=== PATIENT | female | born 1985 | race Asian ===

== ENCOUNTER → 2017-12-08 | Outpatient (CLI) | payer OTHER ==
[2017-12-08 13:16] LABS: BASO % 0.2 %; BASO ABS # 0.01 K/uL (0-0.2); EOS % 0.2 %; EOS ABS # 0.01 K/uL (0-0.5); HEMATOCRIT 36.7 % (37-47); HEMOGLOBIN 12.4 g/dL (12.0-16.0); IG# 0.02 K/uL (0.00-0.02); LYMPH % 19.9 %; LYMPH ABS # 1.26 K/uL (1.2-3.4); MEAN CELL VOLUME 92.4 fL (80-100); MEAN CORPUSCULAR HEMOGLOBIN 31.2 pg (25-34); MEAN CORPUSCULAR HGB CONC 33.8 g/dl (32-36); MEAN PLATELET VOLUME 10.9 fL (7.4-10.4); MONO % 5.8 %; MONO ABS # 0.37 K/uL (0.11-0.59); NEUT % 73.6 %; NEUT ABS # 4.66 K/uL (1.4-6.5); PLATELET COUNT 202 K/uL (130-400); RED CELL DISTRIBUTION WIDTH CV 12.7 % (11.5-14.5); RED CELL DISTRIBUTION WIDTH SD 42.7 fL (36.4-46.3); WHITE BLOOD COUNT 6.33 K/uL (4.8-10.8)
== END | disposition home or self-care (01) ==
LOC: C.LAB1850 12:19
PROVIDERS: ATTEND Obstetrics & Gynecology
DX: Z34.02 Encounter for supervision of normal first pregnancy, second trimester (principal)

== ENCOUNTER → 2017-12-10 | Outpatient (CLI) | payer OTHER | END | disposition home or self-care (01) | LOC: C.LABSPEC 17:05 | PROVIDERS: ATTEND Obstetrics & Gynecology | DX: Z34.02 Encounter for supervision of normal first pregnancy, second trimester (principal) ==

== ENCOUNTER → 2017-12-24 | Outpatient (CLI) | payer OTHER | END | disposition home or self-care (01) | LOC: C.LABSPEC 17:39 | PROVIDERS: ATTEND Obstetrics & Gynecology | DX: N39.0 Urinary tract infection, site not specified (principal); Z34.03 Encounter for supervision of normal first pregnancy, third trimester ==

== ENCOUNTER → 2018-01-05 | Outpatient (CLI) | payer OTHER ==
[2018-01-05 12:19] LABS: HEMATOCRIT 35.6 % (37-47); HEMOGLOBIN 12.5 g/dL (12.0-16.0)
== END | disposition home or self-care (01) ==
LOC: C.LAB1850 10:52
PROVIDERS: ATTEND Obstetrics & Gynecology
DX: Z34.03 Encounter for supervision of normal first pregnancy, third trimester (principal)

== ENCOUNTER → 2018-02-15 | Outpatient (CLI) | payer OTHER | END | disposition home or self-care (01) | LOC: C.LABSPEC 16:04 | PROVIDERS: ATTEND Obstetrics & Gynecology | DX: Z34.03 Encounter for supervision of normal first pregnancy, third trimester (principal) ==

== ENCOUNTER 2018-03-07 05:52 | Inpatient (IN) | payer OTHER ==
[~2018-03-07] VITALS: Ht 165.1 cm; Wt 79.1 kg
[2018-03-07] VITALS (15 sets, daily range): BP systolic 93–105; BP diastolic 60–65; PULSE 72–98; TEMP 36.6–36.9; O2SAT 96–100; Ht 165.1 cm; Wt 79.1 kg
[2018-03-07] MEDS ORDERED: PRENTAB26 PO (05:55)
[2018-03-07] MEDS ORDERED: CITRIC ACID/SODIUM CITRATE 15 ML UDC PO SCH (06:00)
[2018-03-07] MEDS ORDERED: LACTATED RINGER'S 1000ML 1,000 ML IV SCH ×2 (06:15→16:54)
[2018-03-07 06:26] LABS: BASO % 0.1 %; BASO ABS # 0.01 K/uL (0-0.2); EOS % 0.4 %; EOS ABS # 0.03 K/uL (0-0.5); HEMATOCRIT 39.9 % (37-47); IG# 0.01 K/uL (0.00-0.02); LYMPH % 33.7 %; MEAN CELL VOLUME 89.3 fL (80-100); MEAN CORPUSCULAR HEMOGLOBIN 31.3 pg (25-34); MEAN PLATELET VOLUME 11.4 fL (7.4-10.4); MONO % 5.9 %; MONO ABS # 0.42 K/uL (0.11-0.59); NEUT % 59.8 %; NEUT ABS # 4.26 K/uL (1.4-6.5); PLATELET COUNT 216 K/uL (130-400); RED CELL DISTRIBUTION WIDTH CV 13.6 % (11.5-14.5); RED CELL DISTRIBUTION WIDTH SD 44.5 fL (36.4-46.3); WHITE BLOOD COUNT 7.13 K/uL (4.8-10.8)
[2018-03-07 06:38] LABS: MEAN CORPUSCULAR HGB CONC 35.1 g/dl (32-36)
[2018-03-07] MEDS ORDERED: MoRPHine SULFATE PF 1 MG/ML 10 ML AMP/VIAL ONE (06:46)
[2018-03-07] MEDS ORDERED: OXYTOCIN INJ 10 UNITS/ML VIAL ONE (06:46)
[2018-03-07] MEDS ORDERED: FENTANYL CITRATE INJ 50 MCG/1 ML 2 ML VIAL ONE (06:46)
[2018-03-07] MEDS ORDERED: CEFAZOLIN IV 2,000 MG in SYRINGE 0 ML IV SCH (07:00)
--- NOTE | 2018-03-07 07:01 | History and Physical ---
History & Physical Date Mar 07, 2018. Chief Complaint term, breech presentation History of Present Illness The patient is a 33 year old female who presents at 39 weeks with breech presentation for primary c/s. has been uncomplicated. Was discovered to be breech at her 38 week visit. Declined ECV as was not available. Patient was a DAN[facility]A at 26 weeks from [place]. Past Medical/Surgical History healthy psxhx--none Additional History Hepatic Disease: No Endocrine Disorder: No Kidney Disease: No Hypertension: No Heart Disease: No Bleeding Tendencies: No Infectious Diseases: No LMP: 06/07/17 Allergies Coded Allergies: No Known Allergies (Unverified , 03/07/18) Home Medications Scheduled Multivit/Min/Iron/Fol Ac/Pren ( Vitamin), 1 TAB PO DAILY Physical Examination Skin: warm/dry Neck: supple Respiratory/Chest: lungs clear, normal breath sounds Cardiovascular: regular rate, rhythm Abdomen / GI: normal bowel sounds, non tender Extremities: normal inspection Addiitonal Comments: b+/ab-/ri/rprnr/hepb-/hiv-/gc/ct-/16 week gtt nl. gbs neg Diagnosis at 39 weeks with breech presentation. Here for primary c/s. The r/b/se of the procedure were discussed with the patient including bleeding requiring a transfusion, infection, poor wound healing, injury to structures such as bowel , bladder, vessels, nerves ureters requiring further surgery hospitalization or intervention, injury to the baby. Other risks of any surgery reviewed including heart attack, blood clot, stroke or . Consent reviewed and signed. Questions asked and answered.
[2018-03-07] MEDS ORDERED: PHENYLEPHRINE 100MCG/ML 5ML SYR ONE (07:56)
--- NOTE | 2018-03-07 08:27 | [facility] Post Operative Brief Note ---
Immediate Operative Summary Operative Date Mar 07, 2018. Pre-Operative Diagnosis 1. Term at 39 weeks 2. Breech Presentation Post-Operative Diagnosis same Procedure(s) Performed Primary transverse lower uterine caesarean section with the of a live male child at [address]. Surgeon Dr[address] [facility] Surgeon(s) Dr. Cain Estimated Blood Loss 600 ml Findings viable male, breech presentation. Normal appearing uterus, fallopian tubes and ovaries. Specimens A: Placenta B: Cord Blood C: Cord Gases Drains silva Anesthesia spinal Complication(s) None Disposition L&D
--- NOTE | 2018-03-07 08:29 | [facility] Post Operative Brief Note ---
Immediate Operative Summary Operative Date Mar 07, 2018. Pre-Operative Diagnosis 1. Term at 39 weeks 2. Breech Presentation Post-Operative Diagnosis same Procedure(s) Performed Primary transverse lower uterine caesarean section with the of a live male child at [address]. Surgeon Dr[address] Hawley [employer] Worker Surgeon(s) Dr. Cain Estimated Blood Loss 600 ml Findings Consistent with Post-Op Diagnosis Fluids (cc crystalloids) 1500cc Specimens A: Placenta B: Cord Blood C: Cord Gases Drains silva Anesthesia Type Spinal Complication(s) none Disposition Accompanied Pt To Recover: no Disposition: L&D
[2018-03-07] MEDS ORDERED: HYDROCORTISONE ACETATE 25 MG SUPP PR PRN (08:30)
[2018-03-07] MEDS ORDERED: BENZOCAINE 20% AER SPR 82.5 GM CAN EXT PRN (08:30)
[2018-03-07] MEDS ORDERED: LANOLIN OINT EXT PRN (08:30)
[2018-03-07] MEDS ORDERED: SUPERCREAM 0.870 % 15GM JAR EXT PRN (08:30)
[2018-03-07] MEDS ORDERED: OXYTOCIN INJ 20 UNITS in LACTATED RINGER'S 1000ML 1,000 ML IV SCH (08:45)
[2018-03-07] MEDS: SIMETHICONE 80 MG CHEW PO SCH ×4 (09:00→20:07)
[2018-03-07] MEDS ORDERED: NALOXONE HCL INJ 0.08 MG in SYRINGE 1.8 ML IV PRN (09:16)
[2018-03-07] MEDS ORDERED: SODIUM CHLORIDE 0.9% 1000ML 1,000 ML IV PRN (09:16)
[2018-03-07] MEDS ORDERED: LACTATED RINGER'S 1000ML 500 ML IV PRN (09:16)
[2018-03-07] MEDS ORDERED: NALOXONE HCL INJ 1 MG in SODIUM CHLORIDE 0.9% 1000ML 1,000 ML IV PRN (09:16)
[2018-03-07] MEDS ORDERED: EpHEDrine SULFATE INJ 50 MG/ML AMP IV PRN (09:30)
[2018-03-07] MEDS ORDERED: DiphenhydrAMINE HCL 50 MG/ML VIAL IV PRN (09:30)
[2018-03-07] MEDS ORDERED: MoRPHine SULFATE PF 1 MG/ML 10 ML AMP/VIAL INT SPINAL PRN (09:30)
[2018-03-07] MEDS ORDERED: NO NARCOTICS OR SEDATIVES SCH (09:30)
[2018-03-07] MEDS ORDERED: KETOROLAC TROMETHAMINE 30 MG/ML VIAL IV. PRN (09:30)
[2018-03-07] MEDS ORDERED: NALBUPHINE HCL INJ 10 MG/ML AMP IV PRN (09:30)
[2018-03-07] MEDS ORDERED: MoRPHine SULFATE 2 MG/ML CARP IV PRN (09:30)
[2018-03-07] MEDS ORDERED: ONDANSETRON INJ 2 MG/ML 2 ML VIAL IV PRN (09:30)
[2018-03-07] MEDS ORDERED: NALOXONE HCL 0.4 MG/1 ML VIAL/CARP IV PRN (09:30)
--- NOTE | 2018-03-07 09:30 | OPERATIVE REPORT ---
DATE OF OPERATION: 03/07/2018 PREOPERATIVE DIAGNOSES: 1. Intrauterine at 39 weeks. 2. Double footling breech presentation. POSTOPERATIVE DIAGNOSIS: Same. PROCEDURE: Primary low transverse section. SURGEON: Hilda Hawley MD ATOMIC WELDER: Quinn Cain, PGY-1. INDICATIONS: Patient is a 33-year-old female 1, para 0, transferring of care from [place] at 26 weeks who was discovered to be double footling breech presentation at 38 weeks. She was unable to do an ECV because of her 's schedule so she has elected a primary section. FINDINGS: Viable male infant in double footling breech presentation, Apgars 9 and 9. Clear fluid, normal uterus, tubes, and ovaries were noted bilaterally. COMPLICATIONS: None. DRAINS: Kwon. DISPOSITION: To recovery room in stable condition. PROCEDURE: The patient was taken the operating room, where she identified verbally and by bracelet. She was seated on the operating table where a spinal anesthetic was placed. She was then placed in dorsal supine position with a leftward tilt. A Kwon catheter was placed sterilely and the patient was prepped and draped in normal sterile fashion. Time-out was held identifying correct patient, procedure, positioning, and preoperative antibiotic. A Pfannenstiel skin incision was made with a knife and taken down to the underlying layer of fascia with the knife and Bovie electrocautery. Bleeding was attended to with Bovie electrocautery. The fascia was incised in midline and taken out laterally with scissors. The superior edge of the fascial incision was elevated and the underlying layer of rectus muscle was taken off bluntly and with scissors. In a similar fashion, the inferior edge of the fascial incision was grasped and elevated and the underlying layer of rectus muscle was taken off bluntly and with scissors. The muscles were bluntly and sharply in the midline. The peritoneum was entered bluntly and taken superiorly and inferiorly with good visualization of the bladder sharply with scissors. The incision was stretched, the bladder blade was placed. The vesicouterine peritoneum was identified, grasped with a snap, entered with scissors and the bladder flap was created digitally. The bladder blade was replaced. The hysterotomy incision was scored with a knife. It was entered with a snap. Copious amounts of clear fluid was released. The incision was stretched with the depalletizer operator's fingers. The depalletizer operator's hand was placed into the uterus and the feet were grasped and delivered atraumatically through the incision with fundal pressure, the buttocks were delivered easily and then the left shoulder was swept and delivered the right shoulder was swept and delivered and the head was delivered via fundal pressure Pgmtxwkgz-Myutmff-Kwrg maneuver. There was immediate cry. Nose and mouth were bulb suctioned. Cord was clamped and cut and infant was taken away to the pediatricians for drying and attention. Cord blood and gases were obtained. Placenta was manually extracted. The uterus was cleared of all clot and debris with moistened laparotomy sponges. The uterus was exteriorized. The hysterotomy incision was reapproximated with 2 running layers of 0 Vicryl. Oozing was attended to with 2 iqbgkb-mg-oyzem sutures of 0 Vicryl. The posterior cul-de-sac was irrigated and cleared of all clot and debris. The hysterotomy incision was again inspected and 1 more sbitrh-zw-qvdvf suture was needed for hemostasis. Hemostasis was then noted to be excellent. The uterus was reanteriorized and again hysterotomy incision was inspected and found to be hemostatic. The muscles were approximated in the midline with interrupted sutures of 0 Vicryl. The fascia was reapproximated starting at the edges and meeting in the midline bilaterally. Subcuticular tissue was irrigated and bleeding was attended to with Bovie electrocautery and the skin was then closed with a subcuticular stitch of 4-0 Vicryl. All sponge, lap and needle counts were correct x2. The patient tolerated the procedure well and was taken to recovery room in stable condition. I attest to the content of the Intraoperative Record and any orders documented therein. Any exception s are noted below.
--- NOTE | 2018-03-07 15:34 | Anesthesiology Progress Note ---
Anesthesia Post Op Note Date & Time Mar 07, 2018 at 15:34 Vital Signs Pain Intensity: 4.0 Vital Signs Past 12 Hours Date Time Temp Pulse Resp B/P (MAP) Pulse Ox O2 Delivery O2 Flow Rate FiO2 03/07/18 14:55 16 97 03/07/18 13:55 16 97 03/07/18 12:55 94 16 100/65 (77) 96 Room Air 03/07/18 12:55 16 96 03/07/18 11:55 98 16 96/61 (73) 98 Room Air 03/07/18 11:55 16 98 03/07/18 10:55 18 100 03/07/18 10:55 36.6 72 18 105/64 (78) 100 Room Air 03/07/18 10:55 100 Room Air 03/07/18 10:55 100 Room Air Notes Mental Status: alert / awake / arousable, participated in evaluation Pt Amnestic to Procedure: Yes Nausea / Vomiting: adequately controlled Pain: adequately controlled Airway Patency, RR, SpO2: stable & adequate BP & HR: stable & adequate Hydration State: stable & adequate Neuraxial Anesthesia: was administered, sensory block is resolving Anesthetic Complications: no major complications apparent
[2018-03-07] MEDS: DOCUSATE SODIUM 100 MG CAP PO SCH (20:07)
[2018-03-08] VITALS (7 sets, daily range): BP systolic 91–111; BP diastolic 57–73; PULSE 79–87; TEMP 36.6–36.7; O2SAT 96–99
[2018-03-08] MEDS ORDERED: DC INTRASPINAL MORPHINE SCH (01:45)
[2018-03-08] MEDS ORDERED: KETOROLAC TROMETHAMINE 30 MG/ML VIAL IV. PRN (01:46)
[2018-03-08] MEDS ORDERED: DiphenhydrAMINE HCL 50 MG/ML VIAL IV PRN (01:46)
[2018-03-08] MEDS ORDERED: OXYCODONE/ACETAMINOPHEN 5-325 TAB PO PRN (01:46)
--- NOTE | 2018-03-08 06:49 | Progress Note ---
Subjective Mar 08, 2018. Subjective conversation w/ patient, physical exam, chart review, lab review Ambulation: ambulating normally, limited ambulation Voiding: no voiding problems Passing Gas: Yes Diet Tolerance: Clear Liquids Lochia: Moderate Feeding Type: Breast Feeding Review of Systems Constitutional: No fever, No chills Respiratory: No cough, No shortness of breath Cardiac: No chest pain, No palpitations Abdomen: No pain, No nausea, No vomiting Female : No dysuria Objective Vital Signs Date Time Temp Pulse Resp B/P (MAP) Pulse Ox O2 Delivery O2 Flow Rate FiO2 03/08/18 04:00 36.7 80 16 100/60 (73) Room Air 03/08/18 02:00 16 99 03/08/18 01:00 18 99 03/08/18 00:15 98 Room Air 03/08/18 00:15 18 96 03/08/18 00:15 36.6 85 18 91/57 (68) 96 Room Air 03/07/18 22:55 16 98 03/07/18 21:55 16 97 03/07/18 20:55 18 99 03/07/18 19:55 18 98 03/07/18 19:15 36.7 72 18 93/60 (71) 98 Room Air 03/07/18 18:55 18 98 03/07/18 17:55 18 99 03/07/18 16:55 16 98 03/07/18 15:55 16 99 03/07/18 15:30 36.9 72 18 101/63 (76) 99 Room Air 03/07/18 15:30 97 Room Air 03/07/18 14:55 16 97 03/07/18 13:55 16 97 03/07/18 12:55 94 16 100/65 (77) 96 Room Air 03/07/18 12:55 16 96 03/07/18 11:55 98 16 96/61 (73) 98 Room Air 03/07/18 11:55 16 98 03/07/18 10:55 18 100 03/07/18 10:55 36.6 72 18 105/64 (78) 100 Room Air 03/07/18 10:55 100 Room Air 03/07/18 10:55 100 Room Air Physical Exam General Appearance: WELL-APPEARING, WD/WN, NO APPARENT DISTRESS Respiratory/Chest: lungs clear, no respiratory distress Cardiovascular: regular rate, rhythm, no murmur Abdomen: non tender, soft Fundus: Firm, Relation to Umbilicus (1 cm below ) Incision Description: Clean, Dry & Intact Extremities: non-tender, normal inspection Laboratory Results Last 24 Hours Test 03/08/18 06:00 Assessment and Plan Post-Op Day#: 1 Continue Routine Care: Resident Physician Supervision Note: I interviewed and examined the patient. Discussed with Dr. Quinn Cain and agree with findings and plan as documented in the note. Any exceptions or clarifications are listed here: [None] Documented By: Kirstin Trinh Nevaeh 33 F, , B+/RI/GBS-, post op day 1. Kwon removed after adequate output. Patient complains of bilateral shoulder pain. Vital reviewed, WNL. Hgb 14.0 on admission, pending this am. No signs or sx of anemia. Doing well clinically. Plan; 1. Recovery from Csection; advance diet, monitor i/o, ambulate, support BF, monitor lochia, control pain
--- NOTE | 2018-03-08 07:01 | Discharge Instructions ---
Discharge Instructions Date of Service Mar 08, 2018. Admission Reason for Admission: Breech Presentation Discharge Discharge Diagnosis / Problem: csection Discharge Goals Goal(s): Routine recovery after Medications Continue Dispensed Medications: supercream, dermaplast, tucks, lansinoh Activity Recommendations Activity Limitations: per Instructions/Follow-up section . Instructions / Follow-Up Instructions / Follow-Up ACTIVITY RECOMMENDATIONS: * Gradual return to full activity over the next 2-3 weeks. * No lifting - nothing heavier than baby over the next 2-3 weeks. * Do not engage in vigorous exercise, sexual activity or sports until cleared by your physician. * Do not drive or operate any motorized equipment until cleared by your physician. * You may shower/bathe daily. MEDICATIONS: For discomfort or pain, you may use Acetaminophen (Tylenol), Ibuprofen (Advil), or Naproxen (Aleve) following the package directions. For constipation you may use Colace following the package directions. BREAST CARE: If you are not breast feeding: * Wear a supportive bra 24 hours a day for one to two weeks. * Avoid stimulating your breasts and nipples as much as possible during the first few weeks after delivery. * When taking a shower, have the warm water hit your back, not breasts. * When your breasts feel full, apply ice packs. Usually three to four times a day helps ease the discomfort. * Take a mild pain medication (Tylenol / Motrin) when you are uncomfortable. If breast feeding: * Use breast milk to lubricate nipples. Lansinoh cream may be used for sore nipples. You do not need to remove cream prior to breast feeding. If using a different brand of cream, check the label for directions regarding removal of cream prior to nursing. * Wear a supportive bra. * If having problems with breasts or breast feeding, call a customer care voice consultant or your health care provider. SPECIAL CARE INSTRUCTIONS: When you are discharged from the hospital, it is important for you to follow the instructions listed below: * During the first week at home, you should be able to care for yourself and your baby. In addition, the usual light household activities are encouraged. * Limit your activities to the way you feel. Do not try to clean the house or move furniture. Be sensible. * If you actively engage in sports and have done so up until the time of your delivery, you may resume these activities as soon as you feel able. This may take up to one month or even longer. Use good judgment. * Continue to take your vitamins for at least six weeks after the of your baby. * Your diet need not be limited unless you were on a special diet before your delivery. Breast-feeding mothers need around 2500 calories per day and at least 64-80 ounces of fluid per day (8 to 10 glasses). * You should eat foods from the four major food groups. Crash diets or fad diets are to be avoided. Eating lean meats, fresh fruits and vegetables, low-fat dairy products, high fiber foods and a regular exercise program, will help you get back to your pre- weight without putting your health at risk. * Constipation is sometimes a problem after delivery. Take a mild laxative as needed. If breast feeding, Milk of Magnesia is acceptable to use. You may use a suppository or Fleets enema. * A daily shower or tub bath is suggested. Wash incision daily with warm soapy water and pat dry. It doesn't need to be covered unless drainage is present. * A bloody vaginal discharge will usually continue until around four weeks . A small amount of bleeding may continue for as long as six weeks. Vaginal discharge changes from the bright red bleeding after delivery to pink then brownish and finally yellowish-pink before becoming white and disappearing. * Bleeding may increase with activity. Your first period may come in 4-8 weeks. If you are breast feeding, your period may be delayed even longer. * [place] (sex) can begin whenever both you and your partner feel comfortable and do not have any form of genital infection. It is recommended that you wait at least six weeks for internal and external healing to occur. If you have questions, please talk to your health care practitioner. A condom should be used to prevent infection and . * Foreplay, gentle intercourse and lubrication is very important the first several times to prevent pain. A water-based lubricant such as K-Y jelly or Astroglide may be used. * If you have RH negative blood and your baby is RH positive, you will receive RHOGAM by injection prior to discharge. The nurse will give you a card to keep with you that has the date and place that you received RHOGAM after delivery. * During your care, you had a Rubella screen done to check for the presence of rubella antibodies in your blood. If your test was negative, you will receive a Rubella vaccine prior to discharge. This vaccine may cause a fever, soreness at the injection site and flu-like symptoms. If these symptoms persist, notify your health care practitioner. is not advised for one month after a Rubella vaccine. * Verbalizes understanding of car seat law as reviewed with patient nursing. * Car Seat hand-out given and reviewed with patient by nursing. * Shaken baby information reviewed with patient by nursing. Call you doctor if: * Heavy bleeding (saturating several pads an hour) or passing clots the size of your fist. * A fever >101 degrees F (38.3 degrees C) on two occasions four hours apart and /or chills. * Unusual pain in the pelvic or vaginal areas. * Call the doctor for any increased redness, drainage or swelling around the incision and any pain unrelieved by prescribed pain medication. * "Baby Blues" lasting longer than two weeks. If you have any questions or concerns, call your health care practitioner at . FOLLOW UP VISIT: * Please call the office at to schedule a 6 week examination. It is important you keep this appointment. It is important for you to make arrangements for either yearly or twice yearly check-ups thereafter. Current Hospital Diet Patient's current hospital diet: Regular OB Diet Discharge Diet Recommended Diet: Regular Diet, Regular OB Diet Procedures Procedures Performed: Primary transverse lower uterine caesarean section with the of a live male child at 0758. Pending Studies Studies pending at discharge: no Medical Emergencies . Who to Call and When: Medical Emergencies: If at any time you feel your situation is an emergency, please call [phone] immediately. . Non-Emergent Contact Non-Emergency issues call your: Primary Care Provider, Physiological Chemist . . "Provider Documentation" section prepared by Asif Cain. .
[2018-03-08 07:02] LABS: EOS % 0.1 %; EOS ABS # 0.01 K/uL (0-0.5); HEMATOCRIT 35.2 % (37-47); HEMOGLOBIN 12.1 g/dL (12.0-16.0); IG# 0.02 K/uL (0.00-0.02); LYMPH % 23.5 %; LYMPH ABS # 2.08 K/uL (1.2-3.4); MEAN CELL VOLUME 89.6 fL (80-100); MEAN CORPUSCULAR HEMOGLOBIN 30.8 pg (25-34); MEAN CORPUSCULAR HGB CONC 34.4 g/dl (32-36); MEAN PLATELET VOLUME 10.9 fL (7.4-10.4); MONO % 7.1 %; MONO ABS # 0.63 K/uL (0.11-0.59); NEUT % 69.1 %; NEUT ABS # 6.11 K/uL (1.4-6.5); PLATELET COUNT 175 K/uL (130-400); RED CELL DISTRIBUTION WIDTH CV 13.7 % (11.5-14.5); WHITE BLOOD COUNT 8.85 K/uL (4.8-10.8)
[2018-03-08] MEDS: SIMETHICONE 80 MG CHEW PO SCH ×4 (07:42→19:37)
[2018-03-08] MEDS: PRENATAL VITAMIN TAB PO SCH (07:42)
[2018-03-08] MEDS: DOCUSATE SODIUM 100 MG CAP PO SCH ×2 (07:42→19:37)
[2018-03-08] MEDS: OXYCODONE/ACETAMINOPHEN 5-325 TAB PO PRN ×2 (14:20→21:36)
[2018-03-08] MEDS: IBUPROFEN 600 MG TAB PO PRN ×2 (17:57→21:36)
--- NOTE | 2018-03-09 06:53 | Progress Note ---
Subjective Mar 09, 2018. Subjective conversation w/ patient, physical exam, chart review, lab review Ambulation: ambulating normally Voiding: no voiding problems Passing Gas: Yes Diet Tolerance: Regular Diet Lochia: Moderate Feeding Type: Breast Feeding Review of Systems Constitutional: No fever, No chills Respiratory: No cough, No shortness of breath Cardiac: No chest pain, No palpitations Abdomen: No pain, No nausea, No vomiting Female : No dysuria Objective Vital Signs Date Time Temp Pulse Resp B/P (MAP) Pulse Ox O2 Delivery O2 Flow Rate FiO2 03/08/18 23:30 36.7 79 18 111/73 (86) Room Air 03/08/18 23:30 Room Air 03/08/18 15:20 36.7 87 20 98/63 (75) 97 Room Air 03/08/18 15:20 97 Room Air 03/08/18 08:00 36.6 80 18 94/61 (72) Room Air Physical Exam General Appearance: WELL-APPEARING, WD/WN, NO APPARENT DISTRESS Respiratory/Chest: lungs clear, no respiratory distress Cardiovascular: regular rate, rhythm, no murmur Abdomen: soft, + tenderness Fundus: Firm, Relation to Umbilicus (at the level of the u) Incision Description: Clean, Dry & Intact Extremities: non-tender, normal inspection Laboratory Results Last 24 Hours Test 03/09/18 06:41 Assessment and Plan Post-Op Day#: 2 Continue Routine Care: 33 F, , B+/RI/GBS-, post op day 2. Vital reviewed, WNL. Hgb 14.0 on admission, 12.0 on 03/08. No signs or sx of anemia. Doing well clinically. Plan; 1. Recovery from Csection; advance diet, monitor i/o, ambulate, support BF, monitor lochia, control pain Resident Physician Supervision Note: I was present with Dr. Cain during the history and exam. I discussed the case with the resident and agree with the findings and plan as documented in the note. Any exceptions or clarifications are listed here: POD# 2 doing well. Encouraged increased ambulation. Documented By: Mary Jane Martino
[2018-03-09 07:01] LABS: HEMATOCRIT 34.2 % (37-47); HEMOGLOBIN 11.9 g/dL (12.0-16.0)
[2018-03-09] MEDS: DOCUSATE SODIUM 100 MG CAP PO SCH ×2 (07:24→19:37)
[2018-03-09] MEDS: PRENATAL VITAMIN TAB PO SCH (07:25)
[2018-03-09] MEDS: SIMETHICONE 80 MG CHEW PO SCH ×4 (07:25→19:37)
[2018-03-09] MEDS: IBUPROFEN 600 MG TAB PO PRN ×3 (07:26→17:17)
[2018-03-09] MEDS: OXYCODONE/ACETAMINOPHEN 5-325 TAB PO PRN ×3 (07:26→17:18)
[2018-03-09 07:45] VITALS: BP 114/80; PULSE 73; TEMP 36.8; O2SAT 96
[2018-03-09 16:00] VITALS: BP 111/76; PULSE 79; TEMP 36.7; O2SAT 98
[2018-03-09 23:25] VITALS: BP 112/76; PULSE 80; TEMP 36.9
--- NOTE | 2018-03-10 06:43 | Progress Note ---
Subjective Mar 10, 2018. Subjective conversation w/ patient, physical exam, chart review, lab review Ambulation: ambulating normally Voiding: no voiding problems Passing Gas: Yes Diet Tolerance: Regular Diet Lochia: Small Feeding Type: Breast Feeding Review of Systems Constitutional: No fever, No chills Respiratory: No cough, No shortness of breath Cardiac: No chest pain, No palpitations Abdomen: No pain, No nausea, No vomiting Female : No dysuria Objective Vital Signs Date Time Temp Pulse Resp B/P (MAP) Pulse Ox O2 Delivery O2 Flow Rate FiO2 03/09/18 23:25 36.9 80 18 112/76 (88) Room Air 03/09/18 23:25 Room Air 03/09/18 16:00 Room Air 03/09/18 16:00 36.7 79 18 111/76 (88) 98 Room Air 03/09/18 07:45 36.8 73 18 114/80 (91) 96 Room Air 03/09/18 07:45 Room Air Physical Exam General Appearance: WELL-APPEARING, WD/WN, NO APPARENT DISTRESS Respiratory/Chest: lungs clear, no respiratory distress Cardiovascular: regular rate, rhythm, no murmur Abdomen: non tender, soft Fundus: Firm, Relation to Umbilicus (1 cm below u) Incision Description: Clean, Dry & Intact Extremities: non-tender, normal inspection Laboratory Results Last 24 Hours Test 03/09/18 06:41 Hemoglobin 11.9 g/dL Hematocrit 34.2 % Assessment and Plan Post-Op Day#: 3 Continue Routine Care: 33 F, , B+/RI/GBS-, post op day 3. Vital reviewed, WNL. Hgb 14.0 on admission, 12.0 on 03/08. No signs or sx of anemia. Endorses exquisite tenderness with palpation of the abdomen and uterus. Incision intact, dry, clean , no erythema. Pt is afebrile. Plan; 1. Recovery from Csection; advance diet, monitor i/o, ambulate, support BF, monitor lochia, control pain 2. Discussed Dc planning Resident Physician Supervision Note: I interviewed and examined the patient. Discussed with Dr. Cain and agree with findings and plan as documented in the note. Any exceptions or clarifications are listed here: Doing well. Needs to be more active and moving to decrease aches and pains. Documented By: Hilda Hawley
[2018-03-10] MEDS ORDERED: MTR600X PO (07:56)
[2018-03-10] MEDS ORDERED: OXYC-57 PO (07:56)
[2018-03-10 08:00] VITALS: BP_SYST 113; BP_SYST 128; BP_DIAS 74; BP_DIAS 78; PULSE 73; PULSE 78; TEMP 36.7; TEMP 36.8
[2018-03-10] MEDS: PRENATAL VITAMIN TAB PO SCH (08:35)
[2018-03-10] MEDS: SIMETHICONE 80 MG CHEW PO SCH (08:35)
[2018-03-10] MEDS: DOCUSATE SODIUM 100 MG CAP PO SCH (08:35)
[2018-03-10] MEDS: OXYCODONE/ACETAMINOPHEN 5-325 TAB PO PRN (08:35)
[2018-03-10] MEDS: IBUPROFEN 600 MG TAB PO PRN (08:36)
[2018-03-10 11:30] VITALS: BP_DIAS 78; PULSE 73; TEMP 36.7
== END 2018-03-10 11:30 | disposition home or self-care (01) | DRG 766 ==
LOC: C.LD 05:52 → EDSTATUS 07:30 → C.OBG 11:18
PROVIDERS: ADMIT Obstetrics & Gynecology; ATTEND Obstetrics & Gynecology
PROC: 10D00Z1 Extraction of Products of Conception, Low, Open Approach (ICD-10-PCS; principal; 2018-03-07 07:30)
DX: O32.8XX0 Maternal care for other malpresentation of fetus, not applicable or unspecified (principal); Z3A.39 39 weeks gestation of pregnancy; Z37.0 Single live birth